=== PATIENT | male | born 2000 ===

== ENCOUNTER → 2022-08-28 | Outpatient (CLI) | payer OTHER ==
[2022-08-28 09:42] LABS: Urine Bacteria NONE SEEN /hpf (None Seen); Urine Blood Negative /uL (Negative); Urine Specific Gravity 1.023 (1.001-1.035); Urine WBC <1 /hpf (0 - 3)
[2022-08-28 14:17] LABS: Hepatitis C Antibody Negative (Negative)
[2022-08-28 14:27] LABS: Hepatitis B Surface Antibody Positive (Negative)
[2022-08-28 14:29] LABS: Hepatitis A Total Antibody Positive (Negative)
[2022-08-29 08:07] LABS: RPR Non Reactive (Non Reactive)
== END | disposition home or self-care (01) ==
LOC: LAB 09:22
PROVIDERS: ATTEND Nurse Practitioner
DX: Z20.2 Contact with and (suspected) exposure to infections with a predominantly sexual mode of transmission (principal); R30.0 Dysuria
CPT/HCPCS: 36415; 81001; 86592; 86695; 86696; 86703; 86704; 86706; 86708; 86803; 87340